=== PATIENT | female | born 1990 | race Caucasian/White ===

== ENCOUNTER 2021-04-05 11:33 | Emergency (ER) | payer OTHER ==
[2021-04-05 12:10] VITALS: BP 108/53; PULSE 85; TEMP 98.2; BMI 35.2
== END 2021-04-05 13:55 | disposition home or self-care (01) ==
LOC: JERFT 11:33
DX: J06.9 Acute upper respiratory infection, unspecified (principal)
CPT/HCPCS: 99283-25; C9803; U0003; U0005

== ENCOUNTER 2023-08-17 20:12 | Emergency (ER) | payer OTHER ==
[2023-08-17 20:23] VITALS: BP 132/80; PULSE 83; RESP 18; TEMP 98.2; BMI 31.6
== END 2023-08-17 23:29 | disposition home or self-care (01) ==
LOC: JERFT 20:12
PROC: 0XQRXZZ Repair Left Middle Finger, External Approach (ICD-10-PCS; principal; 2023-08-17)
DX: S61.213A Laceration without foreign body of left middle finger without damage to nail, initial encounter (principal); W26.0XXA Contact with knife, initial encounter
CPT/HCPCS: 99283-25